=== PATIENT | female | born 1950 | race Caucasian/White ===

== ENCOUNTER 2016-07-15 08:43 | Outpatient (CLI) | payer MEDICAID | END 2016-07-15 08:44 | disposition home or self-care (01) | DX: D64.9 Anemia, unspecified (principal); Z13.6 Encounter for screening for cardiovascular disorders; E55.9 Vitamin D deficiency, unspecified; E03.9 Hypothyroidism, unspecified; K27.9 Peptic ulcer, site unspecified, unspecified as acute or chronic, without hemorrhage or perforation ==

== ENCOUNTER 2016-09-13 12:57 | Outpatient (CLI) | payer MEDICAID ==
[2016-09-13] MEDS ORDERED: BARIUM SULFATE 176 GM BOTTLE PO ONE (14:23)
[2016-09-13] MEDS ORDERED: BARIUM SULFATE 135 ML BOTTLE PO ONE (14:23)
== END 2016-09-13 12:58 | disposition home or self-care (01) ==
DX: K21.9 Gastro-esophageal reflux disease without esophagitis (principal)
CPT/HCPCS: 74220; A9270